=== PATIENT | male | born 1985 | race African-American/Black ===

== ENCOUNTER 2023-02-17 09:12 | Emergency (ER) | payer BC, SELFPAY ==
--- NOTE | ~2023-02-17 | XR_ITS ---
EXAMINATION: XR ankle RT min 3V INDICATION: Right ankle pain TECHNIQUE: Four views of the right ankle are obtained. COMPARISON: None available FINDINGS: No fracture is identified. 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 There is lateral soft tissue swelling of ankle. IMPRESSION: 1. No acute osseous abnormality. Reviewed, dictated and finalized at location A.
[2023-02-17 09:15] VITALS: BP 151/116; PULSE 109; RESP 16; TEMP 36.3; O2SAT 99
[2023-02-17 10:10] VITALS: BP 165/98; PULSE 100; RESP 20; TEMP 36.4; O2SAT 100
[2023-02-17 10:35] VITALS: BP 167/100; PULSE 97; RESP 18; O2SAT 98
--- NOTE | 2023-02-17 10:47 | ED.LOWEXIN ---
HPI - Extremity Injury (Lower) General Chief Complaint: Extremity Injury, Lower Stated Complaint: Right ankle pain Time Seen by Provider: 02/17/23 10:10 History of Present Illness HPI Narrative: Patient is a 37-year-old male here for evaluation of right ankle pain for the past day. Patient states that the pain began when he was playing basketball, states that another player's foot came directly down on his heel and he felt a pop in his foot. He fell down but did not sustain any other injuries. Since the fall he has had soreness and swelling in his right posterior foot near the Achilles tendon insertion. He is able to plantar and dorsiflex the foot but does note pain with plantarflexion. No numbness or tingling. He has been icing the foot and used ibuprofen yesterday with good relief of his symptoms. Related Data Allergies Allergy/AdvReac Type Severity Reaction Status Date / Time No Known Allergies Allergy Verified 02/17/23 10:33 Review of Systems Review of Systems: Gen.: Denies fevers or chills Eyes: Denies eye pain or visual change ENT: Denies congestion Respiratory: Denies shortness of breath or cough CV: Denies chest pain or palpitations GI: Denies abdominal pain nausea, emesis or diarrhea denies burning, urgency, frequency or hematuria Musculoskeletal: Reports swelling and pain to the posterior foot Neuro: Denies numbness, tingling, weakness or focal weakness Skin: Denies rash Except as documented, all other systems reviewed and negative Exam Narrative: APPEARANCE: Well appearing, no pain in distress, well-nourished. Head: Normocephalic and atraumatic. EYES: PERRLA/EOMI, conjunctivae clear NOSE: No nasal drainage EARS: External ear normal in appearance THROAT: Oropharynx is clear. Mucous membranes are moist. NECK: Supple. No adenopathy, no masses. RESPIRATORY: Airway patent, respirations nonlabored. Clear to auscultation bilaterally, no rales, rhonchi, wheezing. CARDIOVASCULAR: Regular rate and rhythm without murmurs, rubs, or gallops. ABDOMINAL: Normoactive bowel sounds. Soft, nontender, nondistended. No rebound tenderness or guarding. MUSCULOSKELETAL: The right Achilles tendon has not NEURO: Normal speech. No focal neurologic deficits. SKIN: Skin is warm and dry. No rashes. PSYCHIATRIC: Normal affect/mood. Course Vital Signs Vital signs: Vital Signs Temperature 97.4 F L 02/17/23 09:15 Pulse Rate 109 H 02/17/23 09:15 Respiratory Rate 16 02/17/23 09:15 Blood Pressure 151/116 H 02/17/23 09:15 Pulse Oximetry 99 02/17/23 09:15 Oxygen Delivery Room Air 02/17/23 09:15 Temperature 97.6 F 02/17/23 10:10 Pulse Rate 84 02/17/23 11:22 Respiratory Rate 18 02/17/23 11:22 Blood Pressure 161/100 H 02/17/23 11:22 Pulse Oximetry 99 02/17/23 11:22 Oxygen Delivery Room Air 02/17/23 10:10 MDM - Extremity Injury (Lower) MDM Narrative Medical decision making narrative: Patient is a 37-year-old male here for evaluation of pain and swelling near his Achilles insertion over the past day after a basketball injury. Plantar flexion is absent with squeeze of the calf on the right and his Achilles tendon is not palpable on the right, consistent with Achilles tendon rupture. He has strong distal pulses. Plain films are negative. He was placed in a short leg posterior splint and provided with orthopedic follow-up, reports good relief from ibuprofen at home and declines pain medicine. We discussed return precautions and he voiced understanding. Discharge Plan Discharge Clinical Impression: Achilles tendon tear Patient Disposition: Home, Self-Care Condition: Stable Instructions: Antibiotic Form, Achilles Tendon Rupture (ED), Splint Care (ED) Additional Instructions: It is suspected that you have torn your Achilles tendon on the right. You were placed in a splint. Refer to the handout on how to take care of the splint. Please follow-up with the orthopedist next week. Continu
[2023-02-17 11:22] VITALS: BP 161/100; PULSE 84; RESP 18; O2SAT 99
== END 2023-02-17 11:23 | disposition home or self-care (01) ==
PROVIDERS: Emergency Provider Physician Assistant; PCP Family Medicine
DX: S86.011A Strain of right Achilles tendon, initial encounter (principal); W51.XXXA Accidental striking against or bumped into by another person, initial encounter; Y93.67 Activity, basketball
CPT/HCPCS: 29515; 73610; 99283

== ENCOUNTER → 2023-02-24 10:48 | Outpatient (CLI) | payer BC, SELFPAY ==
--- NOTE | ~2023-02-24 | MR_ITS ---
EXAMINATION: MR ankle RT wo con DATE: 02/24/2023 11:46 INDICATION: Right ankle pain with possible Achilles tendon rupture. TECHNIQUE: Magnetic resonance imaging (MRI) of the right ankle was performed without intravenous cont rast. Sequences included sagittal, coronal, and axial proton-density weighted fast spin echo without and with fat saturation. COMPARISON: None. FINDINGS: Medial ankle ligaments: The posterior deep deltoid ligament is normal. There is thickening and increased signal of the anteri or deep and superficial deltoid ligament as well as of the spring ligament complex without significan t surrounding edema consistent with scarring related to chronic sprains. Lateral ankle ligaments: The anterior and posterior inferior tibiofibular ligaments are normal. The anterior talofibular, calc aneofibular and posterior talofibular ligaments are normal. Tendons: Moderate Achilles tendinosis with thickening and mild increased signal. There is a full-thickness tea r of the Achilles tendon occurring approximately 7 cm proximal to the calcaneal insertion with approx imately 3 cm proximal retraction. There is likely secondary reactive other muscular edema along the m yotendinous junction of the distal gastrocnemius musculature. The peroneus longus and brevis tendons are normal. The tibialis anterior and extensor hallucis longus and extensor digitorum longus tendons are normal. The tibialis posterior, flexor digitorum longus and flexor hallucis longus tendons are no rmal. Plantar fascia: There is mild thickening and mild increased signal of the central component of the proximal plantar a poneurosis consistent with mild chronic enthesopathy without tear or surrounding edema to suggest acu te plantar fasciitis. Bones/other: Bone alignment is normal. No fracture or pathologic marrow replacing process. There is mild tibiotala r osteoarthritis with nonuniform joint space narrowing resulting in anterior predominant nonuniform j oint space narrowing with mild degenerative subarticular edema-like signal change along the anterior margin of the tibial plafond. Additional mild osteoarthritis with subarticular edema-like signal marie ge at the talar side of the medial facet of the subtalar joint. There is normal variant osteophytes r elated with bipartite os naviculare. Fluid: Physiologic amount fluid in the joint spaces. There is subcutaneous soft tissue edema with posterior predominance about the distal calf and ankle. Additional simultaneous edema extending over the dorsum lateral aspect of the mid and hindfoot. IMPRESSION: 1. Moderate tendinosis with full-thickness tear of the Achilles tendon approximate 7 cm from its inse rtion with 3 cm proximal retraction. 2. 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 3. Likely scarring related to chronic sprain at the anterior aspect of the deep and superficial delto id ligaments as well as the spring ligament complex. 4. Normal variant bipartite os naviculare. 5. Minimal enthesopathy without tear or evident acute plantar fasciitis at the proximal plantar apone urosis. Reviewed, dictated and finalized at location A. IMPRESSION: 1. Moderate tendinosis with full-thickness tear of the Achilles tendon approxim ate 7 cm from its insertion with 3 cm proximal retraction. 2. 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 3. Likely scarring related to chronic sprain at the anterior aspect of the deep and superficial deltoid ligaments as well as the spring ligament complex. 4. Normal variant bipartite os naviculare. 5. Minimal enthesopathy without tear or evident acute plantar fasciitis at the proximal plantar aponeurosis.
== END ==
PROVIDERS: PCP Family Medicine; Visit Provider Orthopaedic Surgery
DX: M19.071 Primary osteoarthritis, right ankle and foot (principal); S86.011A Strain of right Achilles tendon, initial encounter; X58.XXXA Exposure to other specified factors, initial encounter
CPT/HCPCS: 73721

== ENCOUNTER 2023-11-01 10:05 | Emergency (ER) | payer OTHER, SELFPAY ==
[2023-11-01 10:11] VITALS: BP 157/117; PULSE 124; RESP 24; TEMP 37.7; O2SAT 98
--- NOTE | 2023-11-01 10:17 | ED.BACK ---
HPI - Back Pain/Injury General Chief Complaint: Back Pain/Injury Stated Complaint: back tight / sharp pain Time Seen by Provider: 11/01/23 10:17 Source: patient Mode of arrival: ambulatory Limitations: no limitations History of Present Illness HPI Narrative: Patient is a 38-year-old male who presents with left-sided flank/rib pain that started Sunday. Patient states on he was playing with his children and is concerned he pulled muscle. Patient denies any blood in urine, decreased output, fever, chills, nausea, vomiting. Patient has been drinking water. Has not taken anything for pain. Denies history of kidney stone. Related Data Allergies Allergy/AdvReac Type Severity Reaction Status Date / Time No Known Allergies Allergy Verified 11/01/23 10:16 Review of Systems Review of Systems: All systems reviewed & are unremarkable except as noted in HPI and below Constitutional: Constitutional: Denies body ache(s), Denies chills, Denies fatigue, Denies fever(s), Denies headache(s), Denies malaise and Denies weakness Eyes: Eyes: Denies blurry vision, Denies irritation and Denies loss of vision ENT: Denies otalgia, Denies headache(s), Denies nasal discharge, Denies sinus pain and Denies sore throat Cardiovascular: Cardiovascular: Denies chest pain, Denies irregular heart rhythm and Denies dyspnea Respiratory: Respiratory: Denies dyspnea Gastrointestinal: Gastrointestinal: Denies abdominal pain, Denies melena, Denies hematochezia, Denies diarrhea, Denies nausea and Denies vomiting Genitourinary: Genitourinary: Reports flank pain Musculoskeletal: Musculoskeletal: Denies back pain, Denies myalgias and Denies arthralgias Integumentary/Breasts: Skin/Breast: Denies pruritus and Denies rash Neurologic: Denies headache(s), Denies loss of vision and Denies weakness Psychiatric: Psychiatric: Reports no additional psychiatric complaints Endocrine: Endocrine: Denies fatigue PMFSH Family History Family History Unknown Hypertension Hyperlipidemia Arthritis Social History Social History Smoking status: Never smoker Substance use type: does not use Living arrangements: with family Occupation/Education: occupation Gender identity (if verbalized by the patient): Male Comments At time of signature, agree with nursing past medical, surgical, social and family history. There is no relevant family history pertinent to the presenting complaint. Exam Const: General: cooperative, healthy appearing, comfortable, no acute distress and well nourished Nutritional Appearance: well nourished Orientation/consciousness: patient oriented x3 Limitations: no limitations HENMT: Head: normal to inspection, normocephalic and atraumatic Ears: hearing grossly normal bilaterally and external ears normal Face/Nose/Sinus: Normal external nose present, normal facial exam and face symmetric Face and sinus: normal facial exam and face symmetric Mouth: Yes lip normal Eyes: General: appearance normal, both eyes and all related structures Alignment and Position: alignment normal and position normal Periorbital: periorbital findings normal Eyelids: eyelids normal Pupils: Equal, round and reactive pupils present EOM: EOMs intact bilaterally Neck: Neck: normal visual inspection, full ROM and supple Chest: Chest palpation & inspection: normal inspection of the chest Resp: Effort & Inspection: normal respiratory effort and able to speak in complete sentences Auscultation: clear to auscultation bilaterally Cardio: Rate: regular rate Rhythm: regular rhythm Heart sounds: S1 normal heart sound present and S2 normal heart sound present GI: Inspection: normal to inspection : General: Yes CVA tenderness on the left Skin: General skin exam: normal color and no rashes or lesions noted Neuro: General: patient oriented x3
[2023-11-01 10:51] VITALS: BP 146/102; PULSE 129
== END 2023-11-01 10:58 | disposition home or self-care (01) ==
PROVIDERS: Emergency Provider Nurse Practitioner Family
DX: R10.9 Unspecified abdominal pain (principal)
CPT/HCPCS: 81003; 99213; G0463